=== PATIENT | male | born 1995 | race Caucasian/White ===

== ENCOUNTER 2022-01-30 00:45 | Emergency (ER) | payer BC ==
[~2022-01-30] VITALS: Ht 182.9 cm; Wt 113.3 kg
[2022-01-30 01:20] VITALS: BP 157/97
[2022-01-30] MEDS ORDERED: DICYCLOMINE 10 MG/5 ML ORAL SYR PO STA (02:42)
[2022-01-30] MEDS ORDERED: VISCOUS LIDOCAINE 2% 15 ML UDC PO STA (02:42)
[2022-01-30] MEDS ORDERED: MAGNESIUM/ALUMINUM HYDROXIDE/SIMETHICONE 30ML UDC PO STA (02:42)
[2022-01-30] MEDS ORDERED: DICYCLOMINE HCL 10MG CAPSULE PO NR (03:00)
[2022-01-30 03:01] LABS: BASOPHILS % 0.3 % (0.0-2.0); EOSINOPHILS % 1.1 % (0.0-5.0); LYMPHOCYTES % 40.1 % (20.0-50.0); MEAN CORPUSCULAR HEMOGLOBIN 30.7 pg (28.0-32.0); MEAN CORPUSCULAR VOLUME 88.3 fL (80.0-94.0); MEAN PLATELET VOLUME 9.7 fl (7.4-10.4); MONOCYTES % 6.7 % (2.0-8.0); NEUTROPHILS % 51.8 % (40.0-76.0); PLATELET 271 x1000/uL (130-400); RED BLOOD CELL COUNT 5.55 mill/uL (4.7-6.1); RED CELL DISTRIBUTION WIDTH 12.9 % (11.6-14.6)
[2022-01-30 03:04] LABS: CLARITY URINE CLEAR (CLEAR); COLOR URINE YELLOW (YELLOW); KETONES URINE TRACE (NEGATIVE); LEUKOCYTE ESTERASE URINE NEGATIVE (NEGATIVE); NITRITE URINE NEGATIVE (NEGATIVE); OCCULT BLOOD URINE NEGATIVE (NEGATIVE); PH URINE 6.5 (4.5-8.0); PROTEIN URINE NEGATIVE (NEGATIVE); SPECIFIC GRAVITY URINE 1.026 (1.005-1.030)
[2022-01-30 03:19] LABS: CHLORIDE 106 mEq/L (98-107); ETHANOL BLOOD < 10 mg/dL
[2022-01-30 03:26] LABS: *AMPHETAMINES SCREEN URINE PRESUMTIVE POSITIVE (NEGATIVE); *BARBITURATES SCREEN URINE NEGATIVE (NEGATIVE); *BENZODIAZEPINES SCREEN URINE NEGATIVE (NEGATIVE); *COCAINE SCREEN URINE NEGATIVE (NEGATIVE); CANNABINOID URINE SCREEN PRESUMTIVE POSITIVE (NEGATIVE); METHADONE URINE SCREEN NEGATIVE (NEGATIVE); OPIATES URINE SCREEN NEGATIVE (NEGATIVE); PHENCYCLIDINE URINE SCREEN NEGATIVE (NEGATIVE)
== END 2022-01-30 05:50 | disposition home or self-care (01) ==
LOC: ER 00:45
DX: R10.9 Unspecified abdominal pain (principal); R16.1 Splenomegaly, not elsewhere classified; F12.90 Cannabis use, unspecified, uncomplicated; Z98.890 Other specified postprocedural states
CPT/HCPCS: 36415; 71045; 74176; 80053; 80305; 80320; 81003; 85025; 99285; G0480